=== PATIENT | female | born 1940 | race Caucasian/White ===

== ENCOUNTER 2020-09-05 15:42 | Inpatient (IN) | payer MEDICARE, BC, SELFPAY ==
[2020-09-05] VITALS (7 sets, daily range): BP systolic 152–214; BP diastolic 53–71; PULSE 58–62; RESP 10–14; TEMP 36.4–36.7; O2SAT 97–100; BMI 49.5
--- NOTE | ~2020-09-05 | NM_ITS ---
NM pulmonary perfusion DATE: 09/05/2020 19:10 INDICATION: Syncope TECHNIQUE: A standard views after intravenous injection of 3.6 mCi 99M technetium MAA. COMPARISON: 09/05/2020 AP chest FINDINGS: No segmental or lobar perfusion deficits are identified. IMPRESSION: Low probability of pulmonary embolus Reviewed, dictated and finalized at [facility]. Reviewed, dictated and finalized at location A.
--- NOTE | ~2020-09-05 | CT_ITS ---
EXAMINATION: CT brain wo con DATE: 09/05/2020 16:39 INDICATION: Syncope TECHNIQUE: Computed tomography (CT) of the head was performed without intravenous contrast. The mA wa s adjusted according to patient size. Iterative reconstruction technique was employed. Exam dose: 60 5.33 mGy-cm total exam DLP. COMPARISON: None FINDINGS: Prominent bilateral carotid siphon internal carotid artery calcifications. Nonspecific diminished attenuation of the cerebral white matter, likely due to chronic small vessel i schemic changes. No intracranial mass lesion or hemorrhage or cerebrovascular accident is evident. No midline shift or mass effect effect. No subdural or epidural hematoma. The orbits are unremarkable. Included mastoid air cells and paranasal sinuses are normally developed and aerated. Bilateral hyperostosis frontalis interna is not likely of any clinical significance. No fracture or b one destruction of the cranial vault. IMPRESSION: Cerebral atherosclerosis and chronic small vessel ischemic changes of the cerebral white matter No acute intracranial finding Reviewed, dictated and finalized at [facility]. Reviewed, dictated and finalized at location A.
--- NOTE | ~2020-09-05 | XR_ITS ---
XR chest 1V DATE: 09/05/2020 16:48 INDICATION: Syncope. Lethargy. TECHNIQUE: AP chest COMPARISON: None FINDINGS: There is cardiomegaly. Aortic arch calcification. No hilar or mediastinal enlargement. No pulmonary infiltrate or consolidation, pleural effusion or pulmonary vascular congestion or pneumo thorax is evident. IMPRESSION: Cardiomegaly and aortic atherosclerosis No active pulmonary disease Reviewed, dictated and finalized at location A.
--- NOTE | ~2020-09-05 | US_ITS ---
EXAMINATION: US carotid duplex BI DATE: 09/06/2020 09:53 INDICATION: Syncope TECHNIQUE: Grayscale, color Doppler, and pulsed Doppler images of the cervical carotid arteries were obtained. The degree of vessel stenosis is placed in one of the following categories: normal, <50%, 5 0-69%, >=70% but less than near-occlusion, near-occlusion, or total occlusion. Note that percent sten osis relative to normal distal artery lumen diameter is indirectly measured from velocity measurement s as described by Carlos, et al. Radiology 2003; 229:340-346. COMPARISON: None. FINDINGS: RIGHT: The right common carotid artery (CCA) peak systolic velocity (PSV) is 116 cm/s. The right internal ca rotid artery (ICA) PSV is 117 cm/s. The right ICA end-diastolic velocity (EDV) is 13 cm/s. The right ICA/CCA PSV ratio is 1.0. Grayscale and color Doppler images yield an estimate of <50% diameter reduc tion from plaque in the ICA. The external carotid artery (ECA) PSV is 159 cm/s. There is antegrade fl ow in the right vertebral artery. LEFT: The left CCA PSV is 98 cm/s. The left ICA PSV is 85 cm/s. The left ICA EDV is 21 cm/s. The left ICA/C CA PSV ratio is 0.9. Grayscale and color Doppler images yield an estimate of <50% diameter reduction from plaque in the ICA. The ECA PSV is 88 cm/s. There is antegrade flow in the left vertebral artery. IMPRESSION: 1. <50% stenosis in the right internal carotid artery. 2. <50% stenosis in the left internal carotid artery. Reviewed, dictated and finalized at location A.
--- NOTE | 2020-09-05 15:39 | ED.SYNCOPE ---
HPI - Syncope General Chief Complaint: Syncope Stated Complaint: SYNCOPE Source: patient, EMS and RN notes reviewed Mode of arrival: EMS Limitations: no limitations History of Present Illness HPI narrative: Patient is 80 years old white female brought to the emergency room by ambulance because of general weakness and syncope. Patient's daughter is telling me that patient had a lot of walking today which is considered too much for her, at the [employer] store patient felt severely weak bent forward on the table to avoid blacking out then became unresponsive for unknown duration. The daughter is telling me that patient were laying backward on the table, her upper body on the table and her legs on the floor in a standing position. Patient does not recall anything. Currently patient complaining of lower back pain which is chronic and is not different than before. Patient denies any fever, chills, nausea, vomiting, chest pain, shortness of breath, headache, focal neuro deficit. Related Data Allergies Allergy/AdvReac Type Severity Reaction Status Date / Time Penicillins Allergy Wheezing Verified 09/05/20 16:00 Review of Systems Review of Systems: Narrative: CONSTITUTIONAL: Denies fever, chills, or sweats. EYES: Denies visual changes, redness, or discharge. ENT: Denies rhinorrhea, congestion, sore throat, or otalgia. CARDIOVASCULAR: Denies chest pain, palpitations, or edema. RESPIRATORY: Denies cough or dyspnea. GASTROINTESTINAL: Denies abdominal pain, nausea, vomiting, or diarrhea. GENITOURINARY: Denies dysuria or hematuria. SKIN: Denies rash or itching. MUSCULOSKELETAL: Denies back pain, joint pain, or myalgia. NEUROLOGIC: Denies headache, numbness, or weakness. PSYCHIATRIC: Denies anxiety or depression. PMFSH Past Medical History Medical History (Updated 09/05/20 @ 18:25 by Cortney Jimenez PA-C) Hyperlipidemia Hypertension Hypothyroidism Type 2 diabetes mellitus Social History Social History (Updated 09/05/20 @ 18:24 by Cortney Jimenez PA-C) Social History: Power of corporate attorney: Rohini Brown, daughter. Code status: Do not resuscitate. Exam Narrative: Exam Narrative: General appearance: Well-developed, well-nourished Skin: Normal color Head: Normocephalic, nontraumatic Eyes: Clear conjunctiva ENT: Oropharynx normal, ears normal, nose normal Neck: Supple, nontender Chest and respiratory: Airway patent, no respiratory distress, no accessory muscle use Heart: Regular rate/rhythm Abdomen: Soft, nontender, no organomegaly, quiet bowel sounds Vascular: Normal peripheral pulses, normal capillary refill. Musculoskeletal: Normal range of motion, nontender back Neurologic: Alert and oriented ?3, GENERAL OFFICE DISPATCHER is normal as tested, no gross motor deficit Course Course Emergency Course: Stable Reevaluation(s) Reevaluation #1: Currently patient feeling back to normal, denying any symptoms except chronic lower back pain. Patient was signed out to Dr. Crain at shift change, awaiting for VQ scan results. Date: 09/05/20 Time: 18:52 Vital Signs Vital signs: Vital Signs Temperature 36.7 C 09/05/20 15:41 Pulse Rate 61 09/05/20 15:41 Respiratory Rate 10 L 09/05/20 15:41 Blood Pressure 214/67 H 09/05/20 15:41 Pulse Oximetry 97 09/05/20 15:41 Temperature 36.7 C 09/05/20 15:41 Pulse Rate 60 09/05/20 17:39 Respiratory Rate 13 09/05/20 17:39 Blood Pressure 168/60 H 09/05/20 18:05 Pulse Oximetry 99 09/05/20 17:39 MDM - Syncope MDM Narrative Medical decision making narrative: Patient presents with syncope. Differential diagnosis as below. Labs, CT head, chest x-ray, EKG, UA, orthostatic blood pressure ordered.
--- NOTE | 2020-09-05 15:40 | ECG_ITS ---
Measurements Intervals [place] Rate: 61 P: 37 [place]: 183 QRS: -2 QRSD: 109 T: 55 QT: 402 QTc: 407 Interpretive Statements SINUS RHYTHM BASELINE ARTIFACT- I, II, III, AVR, AVF, V2-V6 NORMAL ECG Electronically Signed On 09-05-2020 17:48:21 CDT by Florencio Urias D.O.
[2020-09-05 15:51] LABS: Glucose Point of Care 161 (65-105)
[2020-09-05 15:54] LABS: Basophils Percent Auto 0.5 % (0.2-1.2); Eosinophils Absolute Auto 0.2 K/mm3 (0-0.3); Eosinophils Percent Auto 2.6 % (0-4.4); Hemoglobin 9.9 g/dL (12.0-15.0); Immature Granulocyte Absolute 0.05 K/mm3 (0.00-0.031); Immature Granulocyte Percent A 0.6 % (0-0.5); Lymphocytes Absolute Auto 1.56 K/mm3 (0.9-3.2); Lymphocytes Percent Auto 18.4 % (18.3-44.2); Mean Corpuscular Hemoglobin 30.2 pg (26-34); Mean Corpuscular Volume 91.5 fl (80-100); Mean Platelet Volume 9.5 fl (7.4-10.4); Monocytes Absolute Auto 0.7 K/mm3 (0.1-0.6); Monocytes Percent Auto 8.4 % (2.6-8.5); Neutrophils Absolute Auto 5.9 K/mm3 (1.3-6.7); Neutrophils Percent Auto 69.5 % (45.5-73.1); Platelet Count Result 338 k/mm3 (150-375); Red Blood Count 3.28 M/mm3 (4.2-5.4); Red Cell Distribution Width 12.5 % (11.5-14.5); White Blood Count 8.5 K/mm3 (4.5-10.0)
[2020-09-05 15:59] LABS: Alveolar/Arterial O2 Gradient 18.6 mmHg; Fractional Inspired Oxygen 21 %; HCO3 ABG 25.8 mEq/l (22.0-26.0); Oxygen Content ABG 14.1 %vol (16.0-22.0); Oxyhemoglobin 95.5 % THb (90.0-100.0); PCO2 ABG 41.9 mmHg (35.0-45.0); PO2 FiO2 Ratio Arterial Blood 3.86 %; Total Hemoglobin 10.4 g/dL (12.0-18.0); pH ABG 7.407 (7.350-7.450)
[2020-09-05 16:00] LABS: Modified Allen's Test Pass; Site Drawn RIGHT RADIAL
[2020-09-05 16:01] LABS: Device ROOM AIR
[2020-09-05 16:05] LABS: Alanine Aminotransferase 23 U/L (4-35); Alkaline Phosphatase 82 U/L (38-126); Anion Gap 6 mmol/L (8-16); Aspartate Amino Transferase 33 U/L (14-36); Bilirubin,Total 0.4 mg/dL (0.2-1.3); Blood Urea Nitrogen 57 mg/dL (7-17); Calcium 9.2 mg/dL (8.4-10.2); Carbon Dioxide 27 mmol/L (22-30); Chloride 99 mmol/L (98-107); Estimated CRCL calculation 28 ml/min; Estimated Glomerular Filt Rate 21; Glucose 173 mg/dL (65-105); Potassium 5.1 mmol/L (3.4-5.0); Prothrombin Time 13.6 Seconds (11.1-14.7); Sodium 132 mmol/L (137-145)
[2020-09-05 16:06] LABS: Partial Thromboplastin Time 27.1 SECONDS (22.3-36.8)
[2020-09-05 16:08] LABS: D Dimer 1.21 ug/mL (<0.48)
[2020-09-05 16:17] LABS: NT Pro B Type Natriuretic Pept 636 PG/ML (5-100); Troponin I < 0.012 ng/mL (0.000-0.034)
[2020-09-05] MEDS: SODIUM CHLORIDE 0.9% IV 1,000 ML 999 ML IV CONT (17:51)
--- NOTE | 2020-09-05 18:09 | PC.NURSE ---
Called 3rd floor, report given to Jesusita RN. This RN informed that the room is not ready for pt. Will call ED when it is clean. Meal tray ordered for pt at this time.
[2020-09-05 18:12] LABS: Add Urine Microscopic? YES; Appearance Urine Clear (Clear); Bilirubin Urine Negative (Negative); Blood Urine Negative (Negative); Color Urine Straw (Yellow); Glucose Urine UA 1+ mg/dL (Negative); Ketones Urine Negative (Negative); Leukocyte Esterase Ur Negative LEU/UL (Negative); Nitrate Urine Negative (Negative); Protein Urine 2+ mg/dL (Negative); RBC Urine 0-2 /hpf (0-2); Specific Grav Ur 1.008 (1.001-1.035); Urobilinogen Urine Negative mg/dL (<2.0); WBC Urine 0-3 /hpf
--- NOTE | 2020-09-05 18:53 | PC.NURSE ---
This RN spoke to Valentina LI and was told Ela LI gave report for pt to come to floor (the room is clean and ready). This RN notified the nurse that the pt is currently having a scan in [facility] and then will come to floor. Valentina states I will give the RN up here report, she can come after the study.
--- NOTE | 2020-09-05 19:40 | ADMGEN ---
This patient, Kathia Sauer, was admitted to Medical Room 343-01. Patient/family oriented to hospital policies and general routines including ID bracelet, bed and alarms, visiting hours, pain management, procedures, bathroom and other care routines, personal items, smoking policy, room service/diet, and visiting hours. Information on how to activate the Rapid Response Team has been discussed. Patient/Family are encouraged to report perceived risks to care and to ask questions if they do not understand what they are told or what they should do.
[2020-09-05] MEDS: SODIUM CHLORIDE 0.9% IV 1,000 ML 60 ML IV CONT (20:00)
--- NOTE | 2020-09-05 20:00 | PM.IMHP ---
H&P: HPI History of Present Illness Date/Time: 09/05/20 20:00 Chief Complaint: Generalized weakness and presumed syncope. Narrative: This is a 80-year-old female with hypertension, hyperlipidemia, hypothyroidism, chronic kidney disease, obstructive sleep apnea on CPAP, TIA, and type 2 diabetes mellitus who presented to the emergency department earlier today via EMS from a local nursery for evaluation of generalized weakness and presumed syncopal episode. She was feeling pretty good this morning and while out shopping for plants at a local nursery she began feeling weak and lightheaded as though she may black out. She rested her head on a nearby table and remembers people standing near her asking if she was okay and then she believes she may have lost consciousness briefly. Her daughter rushed to her side and tells me that the patient's eyes were open however she was not responding and she was reportedly snoring. Over the last couple of months she has had similar episodes of near-syncope but it does not sound as though she has lost consciousness before today. She has also been more fatigued than usual during the same amount of time and is wondering if it may be related to the addition of 2 antihypertensives to her regimen within the last month or so (amlodipine and clonidine). In fact when she was having similar feelings at home she took her blood pressure and reports having a systolic pressure of 109 which is quite low for her. She has been eating and drinking as per usual and denies nausea, vomiting, and diarrhea. She has not noticed a change in urine output but tells me that her kidney function has gotten progressively worse and in fact she was referred to a furniture assembler and installer within upcoming appointment next month. Other recent medication changes including discontinuation of metformin in the addition of Trulicity. She did not have any fall or injuries with episode today. She has not had chest pain, pleuritic pain, or shortness of breath. At the time my evaluation her only complaint is of some low back pain due to the stretcher and that is not unusual. Review of Systems Review of Systems: Narrative: Twelve systems were reviewed with pertinent positives and negatives as per HPI. No fever, chills, or sweats. She denies cold and flu symptoms. No orthopnea or PND. Occasional intermittent lower extremity edema. No calf pain or tenderness. She denies history of venous thromboembolism. She states compliance with CPAP. No focal weakness or paresthesias. Except as documented, all other systems were reviewed and are negative. [facility] Past Medical History Medical History (Updated 09/05/20 @ 22:39 by Cortney Jimenez PA-C) Hyperlipidemia Hypertension Hypothyroidism Obstructive sleep apnea on CPAP Osteoarthritis Transient ischemic attack Type 2 diabetes mellitus Surgical History Surgical History (Updated 09/05/20 @ 22:39 by Cortney Jimenez PA-C) History of arthroplasty of left knee History of bilateral cataract extraction History of cholecystectomy History of myomectomy History of tonsillectomy Family History Family History Father Diabetes mellitus Alzheimers disease Hypertension Mother Diabetes mellitus Gastric tumor Grandparent Hypertension Sibling Hypertension Social History Social History Social History: Power of attorney at law: Rohini Brown, daughter. Code status: Do not resuscitate. Smoking packs per day: 0.5 Smoking cigarettes per day: 10.0 Smoking status: Former smoker Tobacco type: cigarettes Alcohol intake: never Substance use: never Living arrangements: alone Occupation/Education: retired Gender identity (if verbalized by the patient): Female Spiritual care concerns: No Meds Home Medications and Allergies Home Medications Medication Instructio
[2020-09-05 20:50] LABS: Troponin I < 0.012 ng/mL (0.000-0.034)
[2020-09-05 21:55] LABS: Glucose Point of Care 260 (65-105)
[2020-09-05] MEDS: INSULIN ASPART (*BKC) 100 UNITS/ML SUB-Q (22:31)
[2020-09-06] VITALS (19 sets, daily range): BP systolic 126–174; BP diastolic 45–102; PULSE 63–95; RESP 10–20; TEMP 36.3–37.1; O2SAT 64–99
[2020-09-06 00:10] LABS: Troponin I < 0.012 ng/mL (0.000-0.034)
[2020-09-06] MEDS: PROPRANOLOL HCL 40 MG TABLET PO ×3 (01:11→20:58)
[2020-09-06] MEDS: GABAPENTIN 100 MG CAPSULE PO ×2 (01:11→20:58)
[2020-09-06] MEDS: cloNIDine HCL 0.1 MG TABLET PO ×4 (01:11→22:27)
[2020-09-06] MEDS: INSULIN GLARGINE (*BKC) 100 UNITS/ML 47 UNITS SUB-Q ×2 (01:12→21:03)
[2020-09-06 06:07] LABS: Hematocrit 27.1 % (37.0-47.0); Mean Corpuscular HGB Conc 33.2 g/dl (32-36); Mean Corpuscular Hemoglobin 30.4 pg (26-34); Mean Corpuscular Volume 91.6 fl (80-100); Mean Platelet Volume 10.2 fl (7.4-10.4); Platelet Count Result 315 k/mm3 (150-375); Red Blood Count 2.96 M/mm3 (4.2-5.4); Red Cell Distribution Width 12.6 % (11.5-14.5); White Blood Count 9.2 K/mm3 (4.5-10.0)
[2020-09-06] MEDS: LEVOTHYROXINE SODIUM 88 MCG TABLET PO (06:14)
[2020-09-06 06:20] LABS: Magnesium 2.1 mg/dL (1.6-2.3)
[2020-09-06 06:48] LABS: Hemoglobin A1C 9.7 % (<5.7)
[2020-09-06 07:00] LABS: Anion Gap 2 mmol/L (8-16); Blood Urea Nitrogen 50 mg/dL (7-17); Calcium 8.9 mg/dL (8.4-10.2); Carbon Dioxide 32 mmol/L (22-30); Chloride 101 mmol/L (98-107); Estimated CRCL calculation 22 ml/min; Estimated Glomerular Filt Rate 20; Glucose 199 mg/dL (65-105); Potassium 4.7 mmol/L (3.4-5.0); Sodium 135 mmol/L (137-145)
[2020-09-06 08:38] LABS: Glucose Point of Care 181 (65-105)
--- NOTE | 2020-09-06 08:39 | PM.IMPN ---
Progress Note: A&P Assessment and Plan (1) Syncope: Qualifiers: Syncope type: unspecified Qualified Code(s): R55 - Syncope and collapse Code(s): R55 - Syncope and collapse Status: Acute Assessment and Plan: Etiology not entirely clear. Some of the patient's symptoms seem to possibly be cardiac in nature-continue monitoring on telemetry to rule out acute arrhythmia, troponins were negative x3 to rule out acute ACS, perfusion test showed low probability of a PE. Also some of her symptoms are concerning for a possible seizure due to the timing of her unresponsiveness and what sounded like a postictal state. Will continue with a neurology consultation, EEG, MRI of her brain for any acute abnormality. Telemetry shows no acute arrhythmia. Normal sinus rhythm heart rate 78, otherwise normal. Patient's blood pressure this morning was 151/45 which is much improved than her arrival blood pressure which was 214/67 Patient was not orthostatic on arrival. Glucose was well within normal limits if not a bit elevated. Pending-MRI, EEG, Echocardiogram and carotid Doppler ultrasounds and monitor telemetry Neurology consultation placed and appreciate input Continue monitoring. (2) Renal failure: Qualifiers: Renal failure chronicity: unspecified chronicity Qualified Code(s): N19 - Unspecified kidney failure Code(s): N19 - Unspecified kidney failure Status: Acute Assessment and Plan: Patient reports having chronic kidney disease stage 4 and has an upcoming appointment with the pure pak machine operator next month. Unsure of the patient's exact baseline. Her creatinine is 2.4/BUN 50. I believe this is most likely her baseline she does not appear to be dehydrated all. Will trying get records from her primary care provider or viscose cellar charge hand that she sees. (3) Hyperkalemia: Code(s): E87.5 - Hyperkalemia Status: Acute Assessment and Plan: Mild hyperkalemia. Potassium is normal this morning at 4.7. Will continue losartan recheck in the morning. (4) Elevated d-dimer: Code(s): R79.89 - Other specified abnormal findings of blood chemistry Status: Acute Assessment and Plan: Pulmonary embolism low likelihood on V/Q scan (5) Type 2 diabetes mellitus: Code(s): E11.9 - Type 2 diabetes mellitus without complications Status: Acute Assessment and Plan: Continue basal insulin and Trulicity (which she only takes at home once a week on Wednesdays.). Glucose this morning was 181. Stable. Hemoglobin A1c is 9.7%. Initiate sliding scale insulin, Accu-Cheks, and hypoglycemic protocol. (6) Hypertension: Code(s): I10 - Essential (primary) hypertension Status: Acute Assessment and Plan: Blood pressure was 214/67 on arrival to the emergency department but they have improved now to the 151/45. Stable. Continue to monitor closely (7) Hypothyroidism: Code(s): E03.9 - Hypothyroidism, unspecified Status: Acute Assessment and Plan: Continue levothyroxine. TSH was normal. (8) Hyperlipidemia: Code(s): E78.5 - Hyperlipidemia, unspecified Status: Acute Assessment and Plan: Continue statin; LFTs within normal limits. Time Spent With Patient Time with patient: 25 - 35 minutes Subjective Date/time seen: 09/06/20 08:39 Interval history: Patient is a 80 year old woman who walks with a cane with history of HTN, TIA, CHF, Mitral valve prolapse, who presented to the ER via EMS after an episode of unresponsiveness. The patient
[2020-09-06] MEDS: CHOLECALCIFEROL 1,000 UNITS TABLET 5000 UNITS PO (09:49)
[2020-09-06] MEDS: FUROSEMIDE 20 MG TABLET 60 MG PO (09:53)
[2020-09-06] MEDS: OMEGA 3 POLYUNSAT FATTY ACIDS 1 GM CAP 2 GM PO (09:54)
[2020-09-06] MEDS: THERAPEUTIC MULTIVITAMINS/MINERALS TAB (*BKC) 1 TABLET PO (09:54)
[2020-09-06] MEDS: DULoxetine HCL 30 MG CAPSULE.DR PO (09:58)
[2020-09-06] MEDS: DOXAZOSIN MESYLATE 4 MG TABLET 8 MG PO (09:58)
[2020-09-06] MEDS: CLOPIDOGREL BISULFATE 75 MG TABLET PO (09:58)
[2020-09-06] MEDS: amLODIPine BESYLATE 2.5 MG TABLET PO (09:58)
--- NOTE | 2020-09-06 11:04 | WPDNEURCNPN ---
Assessment and Plan Assessment and plan (1) Hypertension: Code(s): I10 - Essential (primary) hypertension Status: Acute (2) Type 2 diabetes mellitus: Code(s): E11.9 - Type 2 diabetes mellitus without complications Status: Acute (3) Syncope: Qualifiers: Syncope type: unspecified Qualified Code(s): R55 - Syncope and collapse Code(s): R55 - Syncope and collapse Status: Acute (4) Renal failure: Qualifiers: Renal failure chronicity: unspecified chronicity Qualified Code(s): N19 - Unspecified kidney failure Code(s): N19 - Unspecified kidney failure Status: Acute (5) Obstructive sleep apnea on CPAP: Code(s): G47.33 - Obstructive sleep apnea (adult) (pediatric); Z99.89 - Dependence on other enabling machines and devices Status: Acute (6) Hypothyroidism: Code(s): E03.9 - Hypothyroidism, unspecified Status: Acute (7) Autonomic dysfunction: Code(s): G90.9 - Disorder of the autonomic nervous system, unspecified Status: Acute Additional Plan known diabetic with recurrent observation of feeling lightheaded and dizzy particularly in the afternoon taking multiple medication to control the blood pressure examination is suggestive of peripheral neuropathy and autonomic dysfunction secondary to underlying diabetes mellitus and aggravating the orthostasis her blood pressure medication needs to be adjusted during her hospitalization if necessary will benefit from either Florinef or midodrine but 1st we need to adjust the blood pressure medication with orthostatic blood pressure checked Consult date: 09/06/20 Time Seen: 11:00 HPI: Kathia Sauer is a 80 year old female Admitted to the hospital for the complaints of generalized weakness and syncopal episode. Patient carries the diagnosis of 1. Hypertension 2. Hyperlipidemia 3. Hypothyroidism 4. Chronic kidney disease 5. Obstructive sleep apnea for which she is on CPAP 6. Type 2 diabetes mellitus. Presented to emergency room for the complaint of generalized weakness and syncopal episode. Reportedly she was feeling good in the morning and out for shopping for planned at a local nursery where she started becoming weak and lightheaded and thought as if she is going to pass out she rested her head on a nearby table and remembers people standing near her asking she was okay and then she believe she may have lost consciousness briefly. On today's visit she reported she does have a feeling that too much blood pressure medication she is taking every day in the afternoon she feels somewhat lightheaded and dizzy. Evaluation up until now revealed negative carotid Doppler study, fairly normal pulmonary perfusion scan, and also negative CT scan of the head. Routine blood studies revealed sodium of 135 potassium 4.7 BUN 50 with creatinine of 2.40 GFR only 20 and glucose of 199 with hemoglobin A1c of 9.7 Review of Systems Review of Systems: All systems reviewed & are unremarkable except as noted in HPI and below PMFSH Past Medical History Medical History Hyperlipidemia Hypertension Hypothyroidism Obstructive sleep apnea on CPAP Osteoarthritis Transient ischemic attack Type 2 diabetes mellitus Surgical History Surgical History History of arthroplasty of left knee History of bilateral cataract extraction History of cholecystectomy History of myomectomy History of tonsillectomy Family History Family History Father Diabetes mellitus Alzheimers disease Hypertension Mother Diabetes mellitus Gastric tumor Grandparent Hypertension Sibling Hypertension Social History Social History Social History: Power of privacy attorney: Rohini Brown, daughter. Code status: Do not resusci
--- NOTE | 2020-09-06 11:10 | PC.NURSE ---
MRI, Ela explained to patient that she would have to go chcf into the MRI. Her head wound be in a cage. She will have to be still.The test will last apporoximately 25 minutes. Patient knows that she has xanax that can be given to her to relax her for the test. Patient voiced that she does not want the MRI done. She voiced that she is claustrophobic.
[2020-09-06] MEDS: LOSARTAN POTASSIUM 25 MG TABLET PO (11:48)
[2020-09-06 12:22] LABS: Glucose Point of Care 315 (65-105)
[2020-09-06] MEDS: INSULIN ASPART (*BKC) 100 UNITS/ML SUB-Q ×2 (12:35→17:16)
[2020-09-06 16:58] LABS: Glucose Point of Care 214 (65-105)
[2020-09-06] MEDS: ROSUVASTATIN 5 MG TABLET PO (20:58)
[2020-09-06 22:05] LABS: Glucose Point of Care 326 (65-105)
[2020-09-07] VITALS (19 sets, daily range): BP systolic 129–193; BP diastolic 50–83; PULSE 14–78; RESP 10–18; TEMP 36.2–36.8; O2SAT 95–100
--- NOTE | 2020-09-07 | ECHO_ITS ---
Patient Info Name: Kathia Sauer Age: 80 years : 1940 Gender: Female Ht: 62 in Wt: 270 lbs BSA: 2.39 m2 HR: 73 bpm BP: 162 / 83 mmHg Heart Rhythm: Sinus Rhythm Technical Quality: Good Exam Date: 09/07/2020 11:36 AM Exam Location: [facility] Pulmonary Exam Room: 343 Patient Status: Inpatient Admit Date: 09/06/2020 Staff Ordering Physician: Stephanie Hernández PA-C Cake Knocker: India Sotelo RDCS Attending Provider: Stephanie Hernández PA-C Referring Physician: Betty SIMMONS; Exam Type: CA echo doppler w bubble study Study Info Indications - syncope Complete two-dimensional, color flow and Doppler transthoracic echocardiogram is performed with agitated saline. Contrast/Agitated Saline Contrast/Ag. Saline: Agitated Saline Amount: 20.00 ml Administered By: Caron Nguyen RN Existing IV Access: Yes IV Access Condition: patent with no signs of infiltration Summary 1. There is moderate concentric increased left ventricular wall thickness. 2. Left ventricular systolic function is normal, estimated at 65-70%. 3. The left ventricular diastolic function is grade I diastolic dysfunction. 4. Left atrial chamber dimension is mildly enlarged. 5. Normal appearing aortic valve. 6. Moderately calcified mitral valve annulus with trivial MR. Left Ventricle Left ventricular chamber dimension is normal. Left ventricular systolic function is normal, estimated at 65-70%. There is moderate concentric increased left ventricular wall thickness. The left ventricular diastolic function is grade I diastolic dysfunction. Right Ventricle Right ventricular chamber dimension is normal. Left Atria Left atrial chamber dimension is mildly enlarged. Right Atria Right atrial chamber dimension is normal. Atrial Septum Intact interatrial septum visualized by agitated saline imaging. Aortic Valve The aortic valve is normal. Pulmonic Valve The pulmonic valve is not well visualized. Mitral Valve The mitral valve has normal leaflets. There is trace mitral valve regurgitation. The mitral valve annulus is moderately calcified. Tricuspid Valve The tricuspid valve leaflets are normal. Pericardium/Pleural The pericardium appears normal. Aorta The aortic root size at the sinus of Valsalva is normal. Left Ventricular Outflow Tract Name Value Normal LVOT 2D LVOT Diameter 2.0 cm LVOT Doppler LVOT Peak Gradient 5 mmHg LVOT Mean Gradient 3 mmHg LVOT VTI 30 cm LVOT VTI/AV VTI Ratio 0.8 LVOT Stroke Volume 94 ml LVOT CO 16.5 l/min LVOT CI 6.9 l/min/m2 Pulmonic Valve Name Value Normal PV Doppler
[2020-09-07] MEDS: cloNIDine HCL 0.1 MG TABLET PO ×2 (06:00→22:28)
[2020-09-07] MEDS: LEVOTHYROXINE SODIUM 88 MCG TABLET PO (06:00)
[2020-09-07 06:16] LABS: Hematocrit 26.2 % (37.0-47.0); Hemoglobin 8.8 g/dL (12.0-15.0); Mean Corpuscular HGB Conc 33.6 g/dl (32-36); Mean Corpuscular Hemoglobin 30.7 pg (26-34); Mean Corpuscular Volume 91.3 fl (80-100); Mean Platelet Volume 10.5 fl (7.4-10.4); Platelet Count Result 271 k/mm3 (150-375); Red Blood Count 2.87 M/mm3 (4.2-5.4); Red Cell Distribution Width 12.7 % (11.5-14.5); White Blood Count 7.7 K/mm3 (4.5-10.0)
[2020-09-07 07:13] LABS: Anion Gap 5 mmol/L (8-16); Blood Urea Nitrogen 51 mg/dL (7-17); Calcium 8.9 mg/dL (8.4-10.2); Carbon Dioxide 31 mmol/L (22-30); Chloride 98 mmol/L (98-107); Estimated CRCL calculation 20 ml/min; Estimated Glomerular Filt Rate 18; Glucose 149 mg/dL (65-105); Potassium 4.6 mmol/L (3.4-5.0); Sodium 134 mmol/L (137-145)
[2020-09-07 08:10] LABS: Glucose Point of Care 140 (65-105)
[2020-09-07] MEDS: THERAPEUTIC MULTIVITAMINS/MINERALS TAB (*BKC) 1 TABLET PO (10:07)
[2020-09-07] MEDS: MAGNESIUM OXIDE 400 MG TABLET 800 MG PO (10:07)
[2020-09-07] MEDS: OMEGA 3 POLYUNSAT FATTY ACIDS 1 GM CAP 2 GM PO (10:08)
[2020-09-07] MEDS: CHOLECALCIFEROL 1,000 UNITS TABLET 5000 UNITS PO (10:08)
[2020-09-07] MEDS: CLOPIDOGREL BISULFATE 75 MG TABLET PO (10:08)
[2020-09-07] MEDS: DOXAZOSIN MESYLATE 4 MG TABLET 8 MG PO (10:08)
[2020-09-07] MEDS: LOSARTAN POTASSIUM 25 MG TABLET PO (10:09)
[2020-09-07] MEDS: amLODIPine BESYLATE 2.5 MG TABLET PO (10:09)
[2020-09-07] MEDS: FUROSEMIDE 20 MG TABLET 60 MG PO (10:09)
[2020-09-07] MEDS: DULoxetine HCL 30 MG CAPSULE.DR PO (10:09)
[2020-09-07] MEDS: PROPRANOLOL HCL 40 MG TABLET PO ×2 (10:10→20:47)
[2020-09-07] MEDS: INSULIN ASPART (*BKC) 100 UNITS/ML SUB-Q ×2 (12:19→17:24)
[2020-09-07 12:24] LABS: Glucose Point of Care 283 (65-105)
--- NOTE | 2020-09-07 13:15 | PC.NURSE ---
bedrest order removed for PT to evaluate pt, per [facility]'s request
--- NOTE | 2020-09-07 13:54 | PC.NURSE ---
pt getting EEG at bedside, will administer meds once test is finished
--- NOTE | 2020-09-07 16:12 | PM.IMPN ---
Progress Note: A&P Assessment and Plan (1) Syncope: Qualifiers: Syncope type: unspecified Qualified Code(s): R55 - Syncope and collapse Code(s): R55 - Syncope and collapse Status: Acute Assessment and Plan: Etiology not entirely clear. Some of the patient's symptoms seem to possibly be cardiac in nature-continue monitoring on telemetry to rule out acute arrhythmia, troponins were negative x3 to rule out acute ACS, perfusion test showed low probability of a PE. Also some of her symptoms are concerning for a possible seizure due to the timing of her unresponsiveness and what sounded like a postictal state. Will continue with a neurology consultation, EEG, MRI of her brain for any acute abnormality. Telemetry shows sinus rhythm with a heart rate of 64 beats per minute, no acute arrhythmia. No alarms noted. Patient's blood pressure this morning was 162/83. Orthostatics checked today show a supine blood pressure 151/50, sitting 140/62, standing 129/58. Patient was asymptomatic with orthostatics. Carotid Dopplers show less than 50% stenosis bilaterally * patient refused the MRI due to claustrophobia EEG was completed today and pending evaluation by the neurologist Today and pending evaluation by the yard clerk Neurology consultation and explained to him the patient's symptoms. He agrees with need for EEG and does not recommend starting any medications at this time. I consulted cardiology today due to the patient's symptoms and history. They would like to evaluate her before deciding if she may or may not need a stress test prior to discharge to rule out cardiac in origin. Continue monitoring. (2) Renal failure: Qualifiers: Renal failure chronicity: unspecified chronicity Qualified Code(s): N19 - Unspecified kidney failure Code(s): N19 - Unspecified kidney failure Status: Acute Assessment and Plan: Patient reports having chronic kidney disease stage 4 and has an upcoming appointment with the lime puller next month. Prior records from 08/13/2020 show Cr of 2.6. Unsure of the patient's exact baseline. Her creatinine is 2.6/BUN 51. Stable from baseline. (3) Hyperkalemia: Code(s): E87.5 - Hyperkalemia Status: Acute Assessment and Plan: Mild hyperkalemia. Potassium is normal this morning at 4.6. (4) Elevated d-dimer: Code(s): R79.89 - Other specified abnormal findings of blood chemistry Status: Acute Assessment and Plan: Pulmonary embolism low likelihood on V/Q scan (5) Type 2 diabetes mellitus: Code(s): E11.9 - Type 2 diabetes mellitus without complications Status: Acute Assessment and Plan: Continue basal insulin and Trulicity (which she only takes at home once a week on Wednesdays.). Glucose this morning was 141. Stable. Hemoglobin A1c is 9.7%. Initiate sliding scale insulin, Accu-Cheks, and hypoglycemic protocol. (6) Hypertension: Code(s): I10 - Essential (primary) hypertension Status: Acute Assessment and Plan: Blood pressure was 214/67 on arrival to the emergency department and it is improved but still elevated at times, 162/83 this morning before medications were given. Patient told me around 2-4 p.m. she developed some lightheadedness, dizziness and near-syncope which has been going on the last few weeks. She is unsure if this is related to her blood pressure and symptoms began after her being started on amlodipine 2.5 mg daily in the morning. She reports taking multiple medications in the morning. When this episode occurs she has checked her blood pressure which comes up as 110 systolic which she states this is ?low for her. Along w
--- NOTE | 2020-09-07 17:14 | PM.CNCAR ---
Assessment and Plan Additional Plan this is a 80-year-old lady with longstanding hypertension who has been having episodes of syncope / near syncope for a couple of months since amlodipine was added to the list of antihypertensives that are being given. The history is most consistent with episodes of orthostasis and I do not see any cardiac dysrhythmia or anything on telemetry that would suggest there is a separate cardiac problem going on. There is nothing about her clinical presentation that would make me suspicious that this is an ischemic event as such I do not believe that stress testing or an ischemia evaluation is necessary at this time. Echocardiogram does show evidence of longstanding hypertensive heart disease with impressive LVH although systolic contractility is quite good. At this time I would recommend eliminating amlodipine from her medical regimen since the symptoms she is having seem to coincide with starting this. If she is stable clinically and has no other cardiac problems I believe she could be safely discharged tomorrow. In situations such as this resting supine blood pressure that is high will probably have to be tolerated to avoid having problematic orthostasis. She is followed chronically by a well logging captain in [place] as such we will not plan to arrange for follow-up in our office following discharge Bill Redding MD [facility] History of Present Illness History of Present Illness Consult date/time: 09/07/20 17:14 Reason For Visit: Syncope, renal failure, hyperkalemia Narrative: This is a pleasant 80-year-old lady who is being seen in this afternoon at the request of the hospitalist because of a apparent syncopal episode that occurred on Monday after which she was admitted to the hospital for observation /evaluation. Patient has a longstanding history of hypertension which is managed by a well logging captain in [place]. She reports that she was at a nursery on Monday afternoon shopping for plans with her daughter and she was walking up an incline back toward the parking lot when she was starting to feel unwell. She described feeling the sense of near syncope with lightheadedness. She sat down on a bench put her head on a table and heard bystanders talking about her that asking if she was feeling okay. The next thing she remembers she was in an ambulance on the way to the hospital. She was evaluated in the emergency room and admitted to the hospital on Monday afternoon. In the time she has been in the hospital she has not had any dysrhythmias on telemetry that would explain a syncopal episode. Her electrocardiogram is essentially a normal tracing. An echocardiogram was done earlier today which I interpreted just before seeing her demonstrates significant concentric left ventricular hypertrophy with vigorous systolic function, grade 1 diastolic noncompliance and no significant valvular heart disease. She seems to be comfortable upon entering the room and offers no other complaints. She did report having had a coronary angiogram by her well logging captain a number of years ago which was by her report essentially negative. She is not reporting any symptoms of chest pain recently. She is on impressive array of antihypertensives including low doses of amlodipine, moderate doses of clonidine, Cardura, modest dose of losartan and a modest dose of propranolol. He also takes furosemide 60 mg daily. She does have some chronic kidney disease metabolic profile done during this admission suggests that she is probably somewhat pre renal. The patient states that within the last couple of months or so amlodipine was added to her medical regimen and episodes like this have started to occur since then. Review of Systems Constitutional: Constitutional: Reports no additional constitutional complaints Eyes: Eyes: Reports no additional eye complaints ENT: Reports system reviewed and no additional complaints, except as documented [facility]
[2020-09-07 17:40] LABS: Glucose Point of Care 260 (65-105)
[2020-09-07] MEDS: GABAPENTIN 100 MG CAPSULE PO (20:47)
[2020-09-07] MEDS: ROSUVASTATIN 5 MG TABLET PO (20:47)
[2020-09-07] MEDS: INSULIN GLARGINE (*BKC) 100 UNITS/ML 47 UNITS SUB-Q (20:48)
[2020-09-07 21:03] LABS: Glucose Point of Care 287 (65-105)
[2020-09-08] VITALS (10 sets, daily range): BP systolic 162–188; BP diastolic 60–83; PULSE 58–72; RESP 12–18; TEMP 36.4; O2SAT 95–97
[2020-09-08 05:43] LABS: Hematocrit 28.3 % (37.0-47.0); Hemoglobin 9.4 g/dL (12.0-15.0)
[2020-09-08 06:12] LABS: Anion Gap 6 mmol/L (8-16); Blood Urea Nitrogen 57 mg/dL (7-17); Carbon Dioxide 31 mmol/L (22-30); Chloride 96 mmol/L (98-107); Estimated CRCL calculation 21 ml/min; Estimated Glomerular Filt Rate 19; Glucose 190 mg/dL (65-105); Potassium 4.4 mmol/L (3.4-5.0); Sodium 133 mmol/L (137-145)
[2020-09-08] MEDS: cloNIDine HCL 0.1 MG TABLET PO (06:32)
[2020-09-08] MEDS: LEVOTHYROXINE SODIUM 88 MCG TABLET PO (06:32)
[2020-09-08] MEDS: MAGNESIUM OXIDE 400 MG TABLET 800 MG PO (09:52)
[2020-09-08] MEDS: CHOLECALCIFEROL 1,000 UNITS TABLET 5000 UNITS PO (09:52)
[2020-09-08] MEDS: FUROSEMIDE 20 MG TABLET 60 MG PO (09:52)
[2020-09-08] MEDS: CLOPIDOGREL BISULFATE 75 MG TABLET PO (09:53)
[2020-09-08] MEDS: OMEGA 3 POLYUNSAT FATTY ACIDS 1 GM CAP 2 GM PO (09:53)
[2020-09-08] MEDS: PROPRANOLOL HCL 40 MG TABLET PO (09:53)
[2020-09-08] MEDS: LOSARTAN POTASSIUM 25 MG TABLET PO (09:53)
[2020-09-08] MEDS: THERAPEUTIC MULTIVITAMINS/MINERALS TAB (*BKC) 1 TABLET PO (09:55)
[2020-09-08] MEDS: DOXAZOSIN MESYLATE 4 MG TABLET 8 MG PO (09:55)
[2020-09-08] MEDS: DULoxetine HCL 30 MG CAPSULE.DR PO (09:55)
--- NOTE | 2020-09-08 10:33 | WPDNEUROLOGY ---
Neurology EEG Report General Information Date of Study: 09/07/20 TEST eeg DIAGNOSIS Possible seizures CONDITION OF RECORDING awake drowsy and sleep EEG NUMBER [id number] CLINICAL HISTORY patient reported she was out shopping when she started feeling weak and then lost consciousness for few minutes. EEG DESCRIPTION Basic resting occipital frequency consists of large amount of low to medium voltage 8 to 9 hertz per 2nd alpha admixed with 5 to 7 hertz per 2nd theta activity. Bilateral symmetrical sleep spindles are seen during sleep. Hyperventilation not done. Photic stimulation not done. Non paroxysmal. Nonfocal. Nonlateralizing. IMPRESSION No significant abnormalities noted. Excessive amount of background rhythm slowing seen but without any paroxysmal discharge.
--- NOTE | 2020-09-08 10:36 | WPDNEUROLOGY ---
Neurology EEG Report General Information Date of Study: 09/07/20 TEST eeg DIAGNOSIS Possibility of seizures CONDITION OF RECORDING awake drowsy and sleep EEG NUMBER [id number] CLINICAL HISTORY patient reported for the last couple of years she has been having episodes of becoming lightheaded and then losing consciousness. 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 EEG DESCRIPTION Background rhythm consists of poorly organized low to medium voltage 5 to 7 hertz per 2nd theta admixed with poorly organized low voltage posterior alpha rhythm. Bilateral sleep activity seen during sleep. Non paroxysmal. Nonfocal. Nonlateralizing. IMPRESSION Mildly abnormal record due to the presence of excessive amount of theta activity and absence of the normal basic occipital activity clinical correlation recommended these abnormalities could be suggestive of underlying organic or metabolic encephalopathy or neuro degenerative process. There is no evidence of paroxysmal activity
--- NOTE | 2020-09-08 10:40 | WPDNEUROLOGY ---
Neurology EEG Report General Information Date of Study: 09/07/20 TEST eeg DIAGNOSIS possible seizures CONDITION OF RECORDING awake drowsy and sleep EEG NUMBER [id number] CLINICAL HISTORY patient reported she was out shopping when she started feeling weak and loss consciousness for few minutes. EEG DESCRIPTION Basic resting occipital frequency consists of large amount of low-voltage 15 to 18 hertz per 2nd beta bilateral symmetrical sleep activity seen during sleep with normal and symmetrical sleep spindles. EKG artifact is seen throughout the tracing. Non paroxysmal. Nonfocal. Nonlateralizing. IMPRESSION No abnormalities noted throughout the tracing particularly there is no evidence of any paroxysmal discharge of focal or diffuse low elements clinical correlation recommended
--- NOTE | 2020-09-08 10:44 | WPDNEUROLOGY ---
Neurology EEG Report General Information Date of Study: 09/07/20 TEST eeg DIAGNOSIS transient alteration of awareness CONDITION OF RECORDING awake drowsy and sleep EEG NUMBER [id number] CLINICAL HISTORY patient reported she started having nocturnal seizures in 2011. Just started seeing a new physician EEG DESCRIPTION basic resting occipital frequency consists of large amount of low to medium voltage 9 to 11 hertz per 2nd alpha admixed with low-voltage 15 to 21 hertz per 2nd beta activity and multiple muscle and movement artifacts. Hyper ablation not done. Photic stimulation produces normal drive. Non paroxysmal. Nonfocal. Nonlateralizing. IMPRESSION No significant abnormalities noted in this tracing 50 diagnosis of partial complex seizure is strongly suspected awake and sleep-deprived EEG suggested
--- NOTE | 2020-09-08 11:13 | PM.DS ---
DS: Admitting Diagnosis Admitting Diagnosis Admitting Diagnosis: Syncope, renal failure, hyperkalemia, elevated d-dimer DS: Discharge Diagnosis Discharge Diagnosis (1) Syncope: Qualifiers: Syncope type: unspecified Qualified Code(s): R55 - Syncope and collapse Code(s): R55 - Syncope and collapse Status: Acute Assessment and Plan: Likely secondary to orthostatic hypotension, largely due to multiple antihypertensives. BP has improved with d/c of amlodipine. Cardiology consulted and appreciate input; okay for discharge from Cardiac standpoint. Neurology consulted and rec EEG which does not seem to show evidence of seizure activity. Troponin levels negative x 3 thus ACS less likely. V/Q showed low probability of PE. Carotid Dopplers show less than 50% stenosis b/l. CT brain showed no acute intracranial finding D/c amlodipine per Cardiology rec F/u with established Lot Associate F/u with PCP Rec daily BP readings Tyler spence recommended if symptoms continued D/c today with outpatient PT/OT (2) Renal failure: Qualifiers: Renal failure chronicity: unspecified chronicity Qualified Code(s): N19 - Unspecified kidney failure Code(s): N19 - Unspecified kidney failure Status: Acute Assessment and Plan: Cr 2.50 today; Prior records from 08/13 show Cr of 2.6. Patient has an upcoming appointment with the motor patrol operator next month. F/u with PCP and motor patrol operator (3) Hyperkalemia: Code(s): E87.5 - Hyperkalemia Status: Acute Assessment and Plan: Mild hyperkalemia on arrival. K 4.4 today F/u with PCP (4) Elevated d-dimer: Code(s): R79.89 - Other specified abnormal findings of blood chemistry Status: Acute Assessment and Plan: PE less likley given V/Q results (5) Type 2 diabetes mellitus: Code(s): E11.9 - Type 2 diabetes mellitus without complications Status: Acute Assessment and Plan: Hemoglobin A1c is 9.7%. Continue home medications sliding scale insulin, Accu-Cheks, and hypoglycemic protocol during stay (6) Hypertension: Code(s): I10 - Essential (primary) hypertension Status: Acute Assessment and Plan: BP labile. Orthostatic initially. BP today 180s sys prior to home medications. D/c amlodipine per Cardiology rec Continue other home meds Daily BP readings for next Cardiology appt. (7) Hypothyroidism: Code(s): E03.9 - Hypothyroidism, unspecified Status: Acute Assessment and Plan: TSH was normal. Continue levothyroxine (8) Hyperlipidemia: Code(s): E78.5 - Hyperlipidemia, unspecified Status: Acute Assessment and Plan: LFTs within normal limits. Continue statins DS: Summary Hospital Course Reason for hospitalization: Syncope, hyperkalemia Hospital Course: Date of arrival: 09/05/20 Date of discharge: 09/08/20 Patient is a 80-year-old female with hypertension, hyperlipidemia, hypothyroidism, chronic kidney disease, obstructive sleep apnea on CPAP, TIA, and type 2 diabetes mellitus who presented to the emergency department on 09/05 via EMS from a local nursery for evaluation of generalized weakness and presumed syncopal episode. While in the ED, Head CT showed no acute intracranial findings. CXR showed no active pulmonary disease. D-dimer was elevated and subsequent VQ scan was unremarkable. Etiology behind her presumed syncopal episode was not entirely clear. Patient admitted to the hospitalist service under this setting for further management/treatment. Please see H&P for furth
[2020-09-08 12:02] LABS: Glucose Point of Care 164 (65-105)
[2020-09-08 12:10] LABS: Glucose Point of Care 271 (65-105)
[2020-09-08] MEDS: INSULIN ASPART (*BKC) 100 UNITS/ML SUB-Q (12:11)
--- NOTE | 2020-09-08 12:22 | PM.PNCARD ---
Progress Note: A&P Assessment and Plan (1) Syncope: Qualifiers: Syncope type: unspecified Qualified Code(s): R55 - Syncope and collapse Code(s): R55 - Syncope and collapse Status: Acute Assessment and Plan: Unlikely related to significant cardiac/arrhythmic etiology. She does have significant LVH. Hydration is important. Would up titrate propanolol as an outpatient. As able, would advise weaning her clonidine also if able on limited she use. (2) Hypertension: Code(s): I10 - Essential (primary) hypertension Status: Acute Assessment and Plan: Above goal (3) Obstructive sleep apnea on CPAP: Code(s): G47.33 - Obstructive sleep apnea (adult) (pediatric); Z99.89 - Dependence on other enabling machines and devices Status: Acute Assessment and Plan: Compliant (4) Renal failure: Qualifiers: Renal failure chronicity: unspecified chronicity Qualified Code(s): N19 - Unspecified kidney failure Code(s): N19 - Unspecified kidney failure Status: Acute Subjective Date/time seen: 09/08/20 12:22 Interval history: Patient is a 80 year old woman who walks with a cane with history of HTN, TIA, CHF, Mitral valve prolapse, who presented to the ER via EMS after an episode of unresponsiveness. The patient was walking around a nursery picking out plants when she began feeling tired as if she needed to sit down to rest. She walked up towards the entrance while her daughter looked at something else and layed her head down on a table which she was standing. Someone asked how the patient was feeling and when she stood up, turned her head she got a little off balance and was leaning up against the table. By the time the patients daughter arrived by her she was leaning up against the table, standing with her eyes and mouth open but unresponsive. Then by the time the EMS was called the patient had closed her eyes and was making a snoring noise. She never fell, no head trauma. The next thing the patient remembers is being in the ambulance coming to the ER. Date of Service 09/08/2020: She feels pretty well today. No more syncope or presyncope. No chest pain or shortness of breath Review of Systems Constitutional: Constitutional: Reports no additional constitutional complaints Eyes: Eyes: Reports no additional eye complaints ENT: Reports system reviewed and no additional complaints, except as documented Cardiovascular: Cardiovascular: Reports as per HPI Respiratory: Respiratory: Reports no additional respiratory complaints Gastrointestinal: Gastrointestinal: Reports no additional gastrointestinal complaints Musculoskeletal: Musculoskeletal: Reports no additional musculoskeletal complaints Neurologic: Reports as per HPI Endocrine: Endocrine: Reports no additional endocrine complaints Hematologic/Lymphatic: Hematologic/Lymphatic: Reports no additional hematologic/lymphatic complaints Allergic/Immunologic: Allergic/Immunologic: Reports no additional allergic/immunologic complaints Exam Const: General: comfortable and no acute distress Other: Alert oriented appears to be in no acute distress HENMT: Mouth: Yes dry mucous membranes Eyes: Sclera: sclerae normal Neck: Neck: supple Other: difficult to assess venous distention given body habitus Resp: Effort & Inspection: normal respiratory effort Auscultation: clear to auscultation bilaterally Cardio: Rate: regular rate Rhythm: regular rhythm Other: PMI is not displaced first and second heart sounds are normal there is no discernible caliber murmur GI: Auscultation: normal bowel sounds Skin: General skin exam: normal color Neuro: Cognition (Neuro): normal cognition Extrem: General: normal to inspection Psych: Appearance: grossly normal Objective Data Vital Signs Vital Signs: Vital Signs - 24 hr 09/07/20 14:00 09/07/20 15:15 09/07/20 15:16 Temperature 36.2 C L Pulse Rate 64
== END 2020-09-08 14:30 | disposition home or self-care (01) | DRG 312 ==
LOC: ANHED 17:43 → ANH3MED 18:03
PROVIDERS: Physician Assistant; Admitting Provider Internal Medicine; Emergency Provider Emergency Medicine; PCP Family Medicine; Visit Provider Physician Assistant
DX: I95.2 Hypotension due to drugs (principal); I13.0 Hypertensive heart and chronic kidney disease with heart failure and stage 1 through stage 4 chronic kidney disease, or unspecified chronic kidney disease; I50.9 Heart failure, unspecified; T46.5X5A Adverse effect of other antihypertensive drugs, initial encounter; E87.5 Hyperkalemia; R79.89 Other specified abnormal findings of blood chemistry; E03.9 Hypothyroidism, unspecified; E78.5 Hyperlipidemia, unspecified; E11.22 Type 2 diabetes mellitus with diabetic chronic kidney disease; N18.9 Chronic kidney disease, unspecified; G47.33 Obstructive sleep apnea (adult) (pediatric); M19.90 Unspecified osteoarthritis, unspecified site; G90.9 Disorder of the autonomic nervous system, unspecified; Z79.4 Long term (current) use of insulin; Z79.899 Other long term (current) drug therapy; Z88.0 Allergy status to penicillin; Z86.73 Personal history of transient ischemic attack (TIA), and cerebral infarction without residual deficits; Z87.891 Personal history of nicotine dependence; Z99.89 Dependence on other enabling machines and devices; Z98.42 Cataract extraction status, left eye; Z98.41 Cataract extraction status, right eye
CPT/HCPCS: 36415; 36600; 51701; 70450; 71045; 78580; 80048; 80053; 81001; 82805; 82948; 83036; 83735; 83880; 84443; 84484; 85014; 85018; 85025; 85027; 85380; 85610; 85730; 93005; 93306; 93880; 95816; 96360; 96375; 97110; 97116; 97161; 97165; 99285; A9270; A9540; G0378; J1815; J7030